=== PATIENT | female | born 1995 | race Caucasian/White ===

== ENCOUNTER 2020-08-31 22:35 | Emergency (ER) | payer MEDICAID, SELFPAY ==
[2020-08-31 22:42] VITALS: BP 118/49; RESP 83; TEMP 36.6; O2SAT 98
--- NOTE | 2020-08-31 22:55 | W.ED.GENAD ---
Discharge Plan Disposition Patient Disposition: HOME Condition: Stable Discharge Details Clinical Impression: Low back pain Primary Care Provider: Isatu,Local ED Provider: Mitch Molina Home Meds and New Rx's Prescriptions: New prednisone 20 mg tablet 60 mg PO DAILY 4 Days Qty: 12 RF: 0 Continued cyclobenzaprine 10 mg Tablet 10 mg PO DAILY RF: 0 estradiol 1 mg Tablet 1 mg DAILY RF: 0 duloxetine [Cymbalta] 60 mg Capsule,Delayed Release(Dr/Ec) 60 mg PO BID RF: 0 Discharge Instructions Instructions: Back Pain (ED) Additional Instructions: follow up with your primary care provider within 1 week if you feel more ill, have fevers, difficulty breathing return to the emergency department Medical Decision Making 25 yo female who states she had a spinal fusion 2 weeks ago and gets intermittent flares of lower back pain that normally responds to steroids comes in stating she is having right lower back pain similar to her prior flares. States it started while cleaning yesterday and denies falls or trauma. Denies fevers or drug use. She has had a hysterectomy in the past per patient. She localizes the pain to the right lower lumbar region, nomidline pain, no saddle anesthesia, normal distal sensation in the feet and normal pulses. Mild increase in pain when lifting her right leg. No difficulty urinating or with bowel movement control. Sympotoms seem most consistent with spasm vs strain vs arthritis. She has no findings on exam to suggest cauda equina and no findings based on history to suggest spinal epidural abscess. No infectious symptoms to suggest osteo and given no trauma do not feel imaging indicated. Will start her on prednisone as it has helped in the past and advised to f/u with pcp and return precautions given Differential Diagnosis Differential Diagnosis: spasm, strain, arthritis HPI General Mode of arrival: ambulatory. Date/Time Provider Initiated Documentation: 08/31/20 22:48. Limitations to Documentation: no limitations. Information obtained by: patient. History of Present Illness 25 year old F presents to the emergency department with the chief complaint of right lower back pain, described as moderate, Quality is described as aching, and is localized to the back. Patient reports no radiation. and it has been constant. Rest improves symptom(s), Movement worsens symptoms . Patient notes no other symptoms.. Patient did receive the following treatments prior to arrival, NSAID Related Data Home Medications Medication Instructions Recorded Confirmed cyclobenzaprine 10 mg PO DAILY 08/31/20 08/31/20 duloxetine [Cymbalta] 60 mg PO BID 08/31/20 08/31/20 estradiol 1 mg DAILY 08/31/20 08/31/20 prednisone 60 mg PO DAILY 4 Days #12 tab 08/31/20 Previous Rx's Medication Instructions Recorded prednisone 60 mg PO DAILY 4 Days #12 tab 08/31/20 Allergies Allergy/AdvReac Type Severity Reaction Status Date / Time No Known Allergies Allergy Unverified 08/31/20 22:48 General Stated Complaint: Nk/Back Pain ELIDA: 4 Review of Systems All systems reviewed & are unremarkable except as noted in HPI and below Constitutional Constitutional: Denies chills, Denies fever(s) and Denies weakness Cardiovascular Cardiovascular: Denies chest pain and Denies dyspnea Respiratory Respiratory: Denies cough and Denies dyspnea Gastrointestinal Gastrointestinal: Denies abdominal pain, Denies nausea and Denies vomiting Musculoskeletal Musculoskeletal: Denies joint swelling Neurologic Neurologic: Denies weakness [facility] Social History Smoking/Tobacco Use Status: Current every day Tobacco Type: cigarettes Tobacco: How many years used: 9 Smoking risk assessment performed?: Yes Alcohol Intake: never Do you feel safe at home: No Do you feel safe in your relationship?: No Exam Const General: no acute distress Orientation: alert HENMT Head: normal to inspection Ears: external ears normal General nose exam: external nose normal Mouth: moist mucous membranes Eyes General: appearance normal, both eyes and all related structures Neck Neck: normal visual inspection Resp Effort & Inspection: normal respiratory effort and able to speak in complete sentences Cardio Rate: regular rate Back/Spine/Pelvis Back: no CVA tenderness Sacrum: no ecchymosis Coccyx: no swelling and no tenderness Skin General skin exam: no rashes or lesions noted Neuro General: patient alert and patient oriented x3 Extrem General: normal to inspection Psych Mental Status: mental status grossly normal Course Vital Signs Vital signs: Vital Signs Temperature 36.6 C 08/31/20 22:42 Respiratory Rate 83 H 08/31/20 22:42 Blood Pressure 118/49 L 08/31/20 22:42 Pulse Oximetry 98 08/31/20 22:42 Temperature 36.6 C 08/31/20 22:42 Temperature Source Temporal Artery Scan 08/31/20 22:42 Respiratory Rate 83 H 08/31/20 22:42 Blood Pressure 118/49 L 08/31/20 22:42 Blood Pressure Position Sitting 08/31/20 22:42 Pulse Oximetry 98 08/31/20 22:42 Oxygen Delivery Method Room Air 08/31/20 22:42 Oxygen Flow Rate 0 08/31/20 22:42 Pain Level 9 08/31/20 22:42
[2020-08-31] MEDS: predniSONE 20 MG TAB 60 MG PO (23:15)
== END 2020-08-31 23:11 | disposition home or self-care (01) ==
PROVIDERS: Emergency Provider Emergency Medicine
DX: M54.5 Low back pain (principal)
CPT/HCPCS: 99283; J7512

== ENCOUNTER 2020-10-24 18:34 | Emergency (ER) | payer MEDICAID, SELFPAY ==
[2020-10-24 18:37] VITALS: BP 105/68; PULSE 94; RESP 18; TEMP 36.3; O2SAT 98
--- NOTE | 2020-10-24 19:16 | ED.GENADUL_ITS ---
Discharge Plan Disposition Patient Disposition: HOME Condition: Good Discharge Details Clinical Impression: Post-op pain Primary Care Provider: [facility]atu[facility] ED Provider: [place] Andres Home Meds and New Rx's Prescriptions: No Action acetaminophen 500 mg Tablet 1,000 mg PO QID PRNRF: 0 ibuprofen [IBU-200] 200 mg Tablet 800 mg PO TID RF: 0 cyclobenzaprine 10 mg Tablet 10 mg PO DAILY RF: 0 estradiol 1 mg Tablet 1 mg DAILY RF: 0 duloxetine [Cymbalta] 60 mg Capsule,Delayed Release(Dr/Ec) 60 mg PO BID RF: 0 Discharge Instructions Additional Instructions: Take ibuprofen 600 mg every 8 hours with food Take Tylenol 650 mg every 4-6 hours as needed for pain control You have an appointment at the fourth at [facility], please go to this appointment, it is very important that you follow-up with your with your outpatient follow-up Please be reevaluated earlier should you develop redness, fever, worsening pain, or with any new or worsening complaints including chest pain, shortness of jayce th, numbness or tingling Medical Decision Making Case discussed with orthopedist, Cirilo, recommendation for D-dimer as we do not have ultrasound available, if D-dimer is negative, plan for outpatient follow-up as patient does not exhibit any evidence of infectious etiology of symptoms D-dimer negative, slight leukocytosis although no exam findings consistent with infectious etiology No indication for ultrasound at this time, reassuring D-dimer Recommend ultrasound with persistent pain Remains neurovascularly intact Has follow-up at [facility] on Discharge home stable condition with stable vitals HPI General Mode of arrival: ambulatory . Date/Time Provider Initiated Documentation: 10/24/20 18:37 . Limitations to Documentation: no limitations . Information obtained by: patient . HPI Narrative: This 25-year-old female presents with recent carpal tunnel decompression approximately 9 days ago. Patient states she has no increased forearm pain. She denies chest pain or shortness of breath. She denies any dizziness or weakness. She denies any new numbness or tingling. She called her orthopedist today and they instructed her to go to the emergency room for evaluation. She states that the pain worsened yesterday evening. She has not taken ibuprofen or Tylenol today reportedly. She denies prior history of coagulopathy. Related Data Home Medications Medication Instructions Recorded Confirmed cyclobenzaprine 10 mg PO DAILY 08/31/20 10/24/20 duloxetine [Cymbalta] 60 mg PO BID 08/31/20 10/24/20 estradiol 1 mg DAILY 08/31/20 10/24/20 acetaminophen 1,000 mg PO QID PRN 10/24/20 10/24/20 ibuprofen [IBU-200] 800 mg PO TID 10/24/20 10/24/20 Allergies Allergy/AdvReac Type Severity Reaction Status Date / Time No Known Allergies Allergy Unverified 10/24/20 18:44 General Stated Complaint: Orthopedic ELIDA: 4 Review of Systems Narrative: Review of systems obtained x7 aside from where indicated in HPI PFSH Social History Smoking/Tobacco Use Status: Current every day Tobacco Type: cigarettes Tobacco: How many years used: 9 Smoking risk assessment performed?: Yes Alcohol Intake: never Do you feel safe at home: No Do you feel safe in your relationship?: No Exam Const Orientation: alert and oriented x3 Resp Effort & Inspection: normal respiratory effort Cardio Rate: regular rate Rhythm: regular rhythm Other: Distal pulses intact Extrem Other: Right wrist with well-appearing past operative site, no dehiscence, erythema, crepitus, no significant swelling, tenderness with palpation overlying the forearm, no obvious swelling, neurovascularly intact No tenderness to upper arm Course Vital Signs Vital signs: Vital Signs Temperature 36.3 C L 10/24/20 18:37 Pulse 94 H 10/24/20 18:37 Respiratory Rate 18 10/24/20 18:37 Blood Pressure 105/68 10/24/20 18:37 Pulse Oximetry 98 10/24/20 18:37 Temperature 36.3 C L 10/24/20 18:37 Temperature Source Temporal Artery Scan 10/24/20 18:37 Pulse 94 H 10/24/20 18:37 Respiratory Rate 18 10/24/20 18:37 Respiratory Effort Non-Labored 10/24/20 18:43 Blood Pressure 105/68 10/24/20 18:37 Blood Pressure Position Sitting 10/24/20 18:37 Pulse Oximetry 98 10/24/20 18:37 Oxygen Delivery Method Room Air 10/24/20 18:37 Oxygen Flow Rate 0 10/24/20 18:37 Pain Level 9 10/24/20 18:46
[2020-10-24 19:39] LABS: Abs Immature Grans 0.05 10^3/uL (0.0-0.06); Absolute Basophil Count 0.04 10^3/uL (0.0-0.2); Absolute Eosinophil Count 0.09 10^3/uL (0.0-0.7); Absolute Lymphocyte Count 2.69 10^3/uL (1.2-3.4); Basophils % 0.3; Eosinophils % 0.6; HGB 12.5 g/dL (11.2-15.7); Immature Grans % 0.3; Lymphocytes % 18.5; MCHC 33.8 % (32.0-36.0); MCV 88.9 fL (80-95); Monocytes % 7.1; Neutrophils % 73.2; Nucleated RBC 0 %; Platelet Count 271 10^3/uL (130-400); RBC 4.16 10^6/uL (3.93-5.22); RDW 12.3 % (11.7-14.6); WBC 14.56 10^3/uL (4.4-10.8)
[2020-10-24 19:42] LABS: Absolute Monocyte Count 1.03 10^3/uL (0.1-0.8); Absolute Neutrophil Count 10.66 10^3/uL (1.2-6.7)
[2020-10-24 19:53] LABS: ALT 33 U/L (14-59); AST 12 U/L (15-37); Albumin 3.9 g/dL (3.4-5.0); Alkaline Phosphatase 93 U/L (46-116); Anion Gap 9.7 mmol/L (3-11); BUN 12 mg/dL (7-18); Bilirubin, Total 0.3 mg/dL (0.2-1.0); CO2 29.3 mmol/L (21.0-32.0); CREATININE 0.8 mg/dL (0.55-1.02); Calcium 9.5 mg/dL (8.5-10.1); Chloride 103 mmol/L (98-107); Glucose 101 mg/dL (74-106); Sodium 142 mmol/L (136-145); Total Protein 7.6 g/dL (6.4-8.2)
[2020-10-24 20:18] LABS: D-Dimer 303 ng/mlFEU (<500)
== END 2020-10-24 20:35 | disposition home or self-care (01) ==
PROVIDERS: Emergency Provider Physician Assistant
DX: M25.531 Pain in right wrist (principal); G89.18 Other acute postprocedural pain; Z98.890 Other specified postprocedural states
CPT/HCPCS: 36415; 80053; 99283; 85025; 85379